=== PATIENT | male | born 1965 | race Caucasian/White ===

== ENCOUNTER 2017-06-15 11:10 | Inpatient (IN) | payer OTHER ==
[2017-06-15 12:21] LABS: PLATELET COUNT 234 10^3/uL (150-400)
--- NOTE | 2017-06-15 12:52 | EDPHY ---
General - History Smoking Status: Former smoker Narrative: CHIEF COMPLAINT: M1 hold, "unpleasant 7 months" HISTORY OF PRESENT ILLNESS: Patient presents by [place] [employer] on an M1 hold. This is for grave disability and suicidal ideation. He reports having "a non pleasant 7 months." Here 1st to feeling depressed, anxious and wanting to . He has attempted to harm self multiple times in past. Most recently by ingesting vodka and over- the-counter sleeping pills earlier this month. Today he was feeling like he was going to hurt himself by a knife to the throat, so he called the police. He arrives on an M1 hold for this. Denies any mental health diagnoses. No other associated complaints or modifying factors. PSYCHIATRIC DIAGNOSES: None PRIOR PSYCHIATRIC EVALUATIONS: Denies M1/DETAINER: [place] [employer]. Just prior to arrival REVIEW OF SYSTEMS: Ten systems reviewed and are negative unless otherwise noted in the HPI EXAMINATION General Appearance: Alert, no distress Head: normocephalic, atraumatic Eyes: Pupils equal and round, no conjunctival pallor or injection ENT, Mouth: Mucous membranes moist. Airway patent Neck: Normal inspection, supple, non-tender Respiratory: Lungs are clear to auscultation. No wheezing, rhonchi or crackles Cardiovascular: Regular rate. Good signs of perfusion. No murmur. Regular rate rhythm Gastrointestinal: Abdomen is soft and nontender Back: non-tender, no bony abnormalities Neurological: GCS 15. A&O, nonfocal, normal gait Skin: Warm and dry, no rash Extremities: Nontender, no pedal edema Psychiatric: Flat affect and depressed mood. Admits suicidal ideation with plan to kill himself by cutting his vital organs or throat DIFFERENTIAL DIAGNOSES: Including but not limited to suicidal ideation, depression, dystonia, schizoaffective, schizophrenia bipolar MDM: 12:50 p.m. M1 hold due to care disability and suicidal thoughts. He is medically cleared at this time for evaluation. He is cooperative in no acute distress 1:30 p.m. Patient resting comfortably awaiting evaluation. 3:30 p.m. At this time patient is awaiting mental evaluation. Resting comfortably and cooperative. 4:00 p.m. At this time I discussed the case with Dr. Mondragon. Patient is pending mental health evaluation at this time. He is resting comfortably in no acute distress. M1 in place SUPERVISION: Patient was independently examined, but I discussed the case with my secondary supervising physician Dr. Naranjo ([facility]) The patient was evaluated and managed by the physician seed analysis laboratory assistant. I have reviewed this chart and I agree with the findings and plan of care as documented , as indicated by my signature. I am the secondary supervising physician. ( Georgina Naranjo) 1700 care assumed by me from JOSE ENRIQUE Olivo pending placement. 20:45 patient has been accepted to [address] [place] [address] Healy I have completed the EMTALA. (Shaw Mondragon) - Objective Vital Signs: Initial Vital Signs Temperature (C) 37 C 06/15/17 11:45 Heart Rate 59 L 06/15/17 11:45 Respiratory Rate 18 06/15/17 11:45 Blood Pressure 122/55 H 06/15/17 11:45 O2 Sat (%) 97 06/15/17 11:45 O2 Delivery Mode Room Air Allergies/Adverse Reactions: No Known Allergies Allergy (Verified 06/15/17 11:43) Home Medications: Medication Instructions Recorded NK [No Known Home Meds] 06/15/17 Laboratory Results: Laboratory Results 06/15/17 12:00 06/15/17 12:00 06/15/17 06/15/17 06/15/17 12:00 12:00 12:00 WBC 8.37 10^3/uL 10^3/uL (3.80-9.50) RBC 4.97 10^6/uL 10^6/uL (4.40-6.38) Hgb 15.9 g/dL g/dL (13.7-17.5) Hct 45.0 % % (40.0-51.0) MCV 90.5 fL fL (81.5-99.8) MCH 32.0 pg pg (27.9-34.1) MCHC 35.3 g/dL g/dL (32.4-36.7) RDW 11.9 % % (11.5-15.2) Plt Count 234 10^3/uL 10^3/uL (150-400) MPV 10.0 fL fL (8.7-11.7) Neut % (Auto) 74.5 % H % (39.3-74.2) Lymph % (Auto) 15.1 % % (15.0-45.0) [place] % (Auto) 8.6 % % (4.5-13.0) Eos % (Auto) 1.0 % % (0.6-7.6) Baso % (Auto) 0.6 % % (0.3-1.7) Nucleat RBC Rel Count 0.0 % % (0.0-0.2) Absolute Neuts (auto) 6.24 10^3/uL 10^3/uL (1.70-6.50) Absolute Lymphs (auto) 1.26 10^3/uL 10^3/uL (1.00-3.00) Absolute Monos (auto) 0.72 10^3/uL 10^3/uL (0.30-0.80) Absolute Eos (auto) 0.08 10^3/uL 10^3/uL (0.03-0.40) Absolute Basos (auto) 0.05 10^3/uL 10^3/uL (0.02-0.10) Absolute Nucleated RBC 0.00 10^3/uL 10^3/uL (0-0.01) Immature Gran % 0.2 % % (0.0-1.1) Immature Gran # 0.02 10^3/uL 10^3/uL (0.00-0.10) Sodium 144 mEq/L mEq/L (135-145) Potassium 3.7 mEq/L mEq/L (3.5-5.2) Chloride 105 mEq/L mEq/L (97-110) Carbon Dioxide 27 mEq/l mEq/l (22-31) Anion Gap 12 mEq/L mEq/L (8-16) BUN 25 mg/dL H mg/dL (7-23) Creatinine 0.7 mg/dL mg/dL (0.7-1.3) Estimated GFR > 60 Glucose 69 mg/dL L mg/dL (70-100) Calcium 9.0 mg/dL mg/dL (8.5-10.4) Urine Opiates Screen NEGATIVE (NEGATIVE) Urine Barbiturates NEGATIVE (NEGATIVE) Ur Phencyclidine Scrn NEGATIVE (NEGATIVE) Ur Amphetamine Screen NEGATIVE (NEGATIVE) U Benzodiazepines Scrn NEGATIVE (NEGATIVE) Urine Cocaine Screen NEGATIVE (NEGATIVE) U Marijuana (THC) Screen NEGATIVE (NEGATIVE) Ethyl Alcohol < 10 mg/dL mg/dL (0-10) Departure - Departure Clinical Impression: Suicidal ideation Condition: Fair Referrals: NONE *PRIMARY CARE P,. [Primary Care Provider] - As per Instructions
[2017-06-15] MEDS ORDERED: ACETAMINOPHEN 325 MG TAB PO PRN (23:21)
[2017-06-15] MEDS ORDERED: MAGNESIUM HYDROXIDE 30 ML UDCUP PO PRN (23:21)
[2017-06-15] MEDS ORDERED: MAG HYDROX/AL HYDROX/SIMETH 30 ML UDCUP PO PRN (23:21)
[2017-06-16] MEDS ORDERED: LITHIUM CARBONATE 300 MG CAP PO SCH ×2 (11:45→21:00)
[2017-06-16] MEDS ORDERED: LITHIUM CARBONATE 300 MG TAB PO SCH (12:00)
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
--- NOTE | 2017-06-16 19:24 | SOAPPROG ---
SOAP Progress Note Assessment/Plan: Assessment: Staff report scored lithium tablet unavailable. Ordered 300mg dose for tonight , will re-evaluate in AM prior to AM dosing. Plan: 06/16/17 19:24 Objective: Vital Signs Temp Pulse Resp BP Pulse Ox 36.3 C 78 12 110/65 96 06/16/17 06:00 06/16/17 16:00 06/16/17 16:00 06/16/17 16:00 06/16/17 16:00 ICD10 Worksheet Patient Problems: Problems Problem Status Onset Anxiety disorder, unspecified Acute Bipolar 2 disorder, major depressive episode Acute Suicidal ideation Acute
[2017-06-16] MEDS ORDERED: LITHIUM CARBONATE ER 300 MG TAB PO SCH (21:00)
--- NOTE | 2017-06-17 10:29 | SOAPPROG ---
SOAP Progress Note Assessment/Plan: Assessment: Bipolar Disorder type 2, depressed with mixed features Avoidant and Schizotypal PD traits Multiple family stressors Patient admitted on M-1 for SI with plan to stab himself, severe insomnia, severe anxiety, and inability to eat or work. Patient appears less emotionally distressed this AM, continued reduced sleep, brief SI without plan, continued hopelessness Plan: M-1 Hold Increase [place] 300mg BID, plan to check level 06/21/2017 Monitor mood stability, depression severity, risk of self-harm SP-1 precautions 06/17/17 10:26 Subjective: CC "Still down" Patient reports tolerating lithium. Reports mild feelings of sedation or visual distortions, unsure if this is a side effect. Denies tremors, nausea, or diarrhea or somnolence. Reports disrupted sleep overnight. Reports lithium may be reducing intensity of emotions. Reports continued brief suicidal thoughts, denies plan/intent, reports thoughts are less intense than previous. Reports feeling hopeless when thinking about brother and mother in [place] who are incapacitated. Reports wanting treatment and to get better. Objective: Vital Signs Temp Pulse Resp BP Pulse Ox 36.6 C 65 12 121/59 H 96 06/17/17 00:05 06/17/17 00:05 06/17/17 00:05 06/17/17 00:05 06/17/17 00:05 Alert thin WM ambulatory without tremor. Speech RRR, loud and rambling at times. Affect anxious, briefly dysphoric. Thoughts organized but perseverating and tangential at times. Reports brief SI without plan and brief feelings of hopelessness. Denies violent thoughts, AH, or paranoia. Fair insight, appropriate judgment. Reviewed patients strength: working, supportive brother, history of resilency, exercising Staff report patient eating fairly well and attending groups, only slept 5 hours , anxious and fearful about medication at times. AST, ALT, TSH WNL - Time Spent With Patient Time Spent With Patient: 30 minutes - Pending Discharge Pending Discharge Within 24 Hours: No Pending Discharge Within 48 Hours: No ICD10 Worksheet Patient Problems: Problems Problem Status Onset Anxiety disorder, unspecified Acute Bipolar 2 disorder, major depressive episode Acute Suicidal ideation Acute
[2017-06-17] MEDS: LITHIUM CARBONATE 300 MG CAP PO SCH ×2 (11:03→22:28)
[2017-06-17] MEDS: LORazepam 0.5 MG TAB PO PRN ×2 (13:22→22:29)
[2017-06-18] MEDS: LITHIUM CARBONATE 300 MG CAP PO SCH ×2 (08:31→21:00)
--- NOTE | 2017-06-18 09:23 | SOAPPROG ---
SOAP Progress Note Assessment/Plan: Assessment: Bipolar Disorder type 2, depressed with mixed features Avoidant and Schizotypal PD traits Multiple family stressors (one brother in [place] in mental institution since October 2016; mother 06/17/17 after prolonged illness) Patient admitted on M-1 for SI with plan to stab himself, severe insomnia, severe anxiety, and inability to eat or work. Patient appears less emotionally distressed since starting Chunky with improved sleep. Bradycardia may be related to patient getting Ativan and Chunky last night, patient asymptomatic. Plan: Patient agrees to voluntary treatment Continue [place] 300mg BID, plan to check level 06/21/2017 with BMP Ativan 0.5mg Q6 PRN severe anxiety Discussed risk of bradycardia, hypotension, syncope with Chunky, Ativan Vitals BID Monitor mood stability, depression severity, risk of self-harm SP-1 precautions 06/18/17 09:19 Subjective: CC: "Slept better" Patient reports taking Chunky and PRN Ativan and sleeping 8 hours. Reports this is a dramatic improvement, has only slept 0-5 hours nightly for years. Reports coping with mothers . Reports anxiety about returning to work but wants continued inpatient treatment and then will take several days of bereavement leave after discharge. Denies dizziness or fainting. Reports tolerating Chunky. Reports reduced intensity of mood swings and feeling less overwhelmed and less hopeless. Reports yesterday PM having brief thoughts of and feeling that life is not worth living, but denies suicidal plan/ intent. Objective: Vital Signs Temp Pulse Resp BP Pulse Ox 36.6 C 49 L 16 101/56 L 95 06/18/17 06:00 06/18/17 06:00 06/18/17 06:00 06/18/17 06:00 06/18/17 06:00 Alert tall thin WM with varela. Speech RRR. Mood "Doing better, slept better" Affect reactive. Thoughts organized but tangential at times. Reports thoughts of wanting to last night, denies suicidal plan/intent. Denies violent thoughts or paranoia or AH. Insight fair. Judgment appropriate. Staff reports patient slept overnight, attending groups, eating well. - Time Spent With Patient Time Spent With Patient: 30 minutes - Pending Discharge Pending Discharge Within 24 Hours: No Pending Discharge Within 48 Hours: No ICD10 Worksheet Patient Problems: Problems Problem Status Onset Anxiety disorder, unspecified Acute Bipolar 2 disorder, major depressive episode Acute Suicidal ideation Acute
[2017-06-18] MEDS: LORazepam 0.5 MG TAB PO PRN ×2 (12:55→21:05)
[2017-06-19] MEDS: LORazepam 0.5 MG TAB PO PRN (08:59)
[2017-06-19] MEDS: LITHIUM CARBONATE 300 MG CAP PO SCH ×2 (08:59→21:56)
--- NOTE | 2017-06-19 13:14 | SOAPPROG ---
SOAP Progress Note Assessment/Plan: Assessment: Per Dr. Welch's note: Assessment: Bipolar Disorder type 2, depressed with mixed features Avoidant and Schizotypal PD traits Multiple family stressors (one brother in [place] in mental institution since October 2016; mother 06/17/17 after prolonged illness) Patient admitted on M-1 for SI with plan to stab himself, severe insomnia, severe anxiety, and inability to eat or work. Patient appears less emotionally distressed since starting [place] with improved sleep. Bradycardia may be related to patient getting Ativan and [place] last night, patient asymptomatic. Plan: Patient agrees to voluntary treatment Continue [place] 300mg BID, plan to check level 06/21/2017 with BMP Ativan 0.5mg Q6 PRN severe anxiety Discussed risk of bradycardia, hypotension, syncope with [place], Ativan Vitals BID Monitor mood stability, depression severity, risk of self-harm SP-1 precautions Plan: 06/19/17 13:07 1. CCM - patient tolerating increased dose of [place], some polyuria, but that seems improved per patient 2. [place] level schedule Mon AM 3. No more incidents of bradycardia or hypotension, VSS 4. Mood improved, no SI Subjective: Met with patient, reviewed chart and d/w staff. Patient says when he first started lithium he saw "wavy lines" but these symptoms have stopped. He c/o frequent urination during night, but reports he would usually "wake up to pee" several times a night for past few years, "I guess it's part of aging." So it's unclear this symptom is actually associated with lithium. Patient admits he has been feeling tearful and sad since his [facility] . However, he says he is "handling it better" today. He says his mood is "pretty positive" but he gets sad when he talks to his MARCUS or BOC who were making arrangements for his [facility] memorial. Patient says he had been feeling depressed about his life more recently, but his [facility] terminal illness was "the final straw." MD discussed aftercare plans, including IOP, but patient says he doesn't have time to attend IOP b/c "I can't take that much time off work." He plans to see therapist through his employer's [employer], and agrees to see a provider through [facility] in [place]. He denies any SI/HI, and has no intent or plan to hurt himself or anyone else. Objective: Vital Signs Temp Pulse Resp BP Pulse Ox 36.7 C 61 16 115/67 93 06/19/17 09:30 06/19/17 06:00 06/19/17 06:00 06/19/17 06:00 06/19/17 06:00 MSE: Affect: Euthymic, grief about his MOC's Mood: "Pretty positive" TP : Linear, goal-directed TC: Denies any SI/HI, no AH/VH Insight/Judgment: Fair - Time Spent With Patient Time Spent With Patient: 25" - Pending Discharge Pending Discharge Within 24 Hours: No Pending Discharge Within 48 Hours: No ICD10 Worksheet Patient Problems: Problems Problem Status Onset Anxiety disorder, unspecified Acute Bipolar 2 disorder, major depressive episode Acute Suicidal ideation Acute
[2017-06-20] MEDS: LITHIUM CARBONATE 300 MG CAP PO SCH ×2 (08:25→18:02)
--- NOTE | 2017-06-20 14:34 | SOAPPROG ---
SOAP Progress Note Assessment/Plan: Assessment: Per Dr. Welch's note: Assessment: Bipolar Disorder type 2, depressed with mixed features Avoidant and Schizotypal PD traits Multiple family stressors (one brother in [place] in mental institution since October 2016; mother 06/17/17 after prolonged illness) Patient admitted on M-1 for SI with plan to stab himself, severe insomnia, severe anxiety, and inability to eat or work. Patient appears less emotionally distressed since starting [place] with improved sleep. Bradycardia may be related to patient getting Ativan and [place] last night, patient asymptomatic. Plan: Patient agrees to voluntary treatment Continue [place] 300mg BID, plan to check level 06/21/2017 with BMP Ativan 0.5mg Q6 PRN severe anxiety Discussed risk of bradycardia, hypotension, syncope with [place], Ativan Vitals BID Monitor mood stability, depression severity, risk of self-harm SP-1 precautions Plan: 06/19/17 13:07 1. CCM - patient tolerating increased dose of [place], some polyuria, but that seems improved per patient 2. [place] level schedule Mon AM 3. No more incidents of bradycardia or hypotension, VSS 4. Mood improved, no SI 06/20/17 14:29 1. CCM - reports improved mood, no SI 2. VSS, diastolic of 57 on 06/18 and HR 58 on 06/20, but otherwise HR low 60's and diastolic > 70 Subjective: Met with patient, reviewed chart and d/w staff. Patient has bright affect, reading magazine on couch this AM. After art therapy group, patient was in cheerful mood. He was writing on the art project he made and taping it to his bedroom door. He said he's feeling "good" today and denies any SI/HI. Patient slept 9.5 hrs and ate 100% of breakfast. Denies feeling depressed or hopeless. Objective: Vital Signs Temp Pulse Resp BP Pulse Ox 36.2 C 58 L 14 119/61 93 06/20/17 06:47 06/20/17 06:47 06/20/17 06:47 06/20/17 06:47 06/20/17 06:47 MSE: Affect: Euthymic, bright, cheerful Mood: "Good" TP: Linear, goal- directed TC: No SI/HI, no AH/VH Insight/Judgment: Fair - Time Spent With Patient Time Spent With Patient: 20" - Pending Discharge Pending Discharge Within 24 Hours: No Pending Discharge Within 48 Hours: No ICD10 Worksheet Patient Problems: Problems Problem Status Onset Anxiety disorder, unspecified Acute Bipolar 2 disorder, major depressive episode Acute Suicidal ideation Acute
[2017-06-21 06:53] VITALS: BP 117/64; PULSE 72; RESP 16; TEMP 97.4; O2SAT 96
[2017-06-21] MEDS: LITHIUM CARBONATE 300 MG CAP PO SCH (08:43)
--- NOTE | 2017-06-21 17:53 | BDS ---
[f rep st] BEHAVIORAL HEALTH DISCHARGE SUMMARY IDENTIFICATION: This is a 52-year-old single white male who lives alone. 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 DATE OF ADMISSION: The patient was in the emergency room on June 15 and then transferred to the inpatient psychiatric unit on an M1 hold after that. ADMITTING DIAGNOSIS: Bipolar disorder, type 2, most recent episode depressed, severe, with mixed features, suicidal ideation, history of head injury in 1999. BRIEF PSYCHIATRIC HISTORY: The patient has no history of psychiatric hospitalizations. He denies any history of suicide attempts or violence toward others. He reports depression and mood swings as an adolescent and having brief suicidal thoughts during that time. Prior to admission, the patient had been cutting his abdomen with a knife while having suicidal thoughts to kill himself. The patient denies a history of drug or alcohol addiction. However, he reports abusing alcohol and cannabis in the past. BRIEF MEDICAL HISTORY: The patient had a head injury with a skull fracture and a scapular fracture in 1999 with prolonged loss of consciousness and a 6-day hospitalization. He denies any chronic medical conditions. He does have a history of an appendectomy. REASON FOR ADMISSION: The patient apparently called paramedics due to severe mood swings. He reported he was having severe depression and severe insomnia. He had gone months with only a few hours of sleep. He had no appetite. He felt anxious and agitated and was having recurrent suicidal thoughts to stab himself in the abdomen with a knife. He had been scratching his abdomen with a knife prior to admission. He also had thoughts to cut his throat. INITIAL EXAMINATION: The patient was a tall, thin, disheveled white male. He appeared very anxious and dysphoric and tearful. He had a labile affect, at times was smiling and laughing, other times was tearful and crying, and reporting alternatively feeling hopeless, helpless, and overwhelmed, and having suicidal thoughts. He denied violent thoughts. He denied auditory hallucinations or paranoia. He was oriented to person, place, and time, with fair insight but impaired judgment. HOSPITAL COURSE: The patient on the inpatient unit was initially on an M1 hold. He agreed to stay in the hospital voluntarily for treatment. The patient endorsed a history of mixed depressive and hypomanic symptoms, primarily depression symptoms for many years with the severe insomnia. The patient was given information about either trying Symbyax, which is a combination of olanzapine and fluoxetine, for bipolar disorder type 2, depressive episode, versus trying lithium. The patient was extremely anxious about taking psychiatric medications as he had never taken psychiatric medications. He did agree start a low dose of lithium, initially 150 in the morning and then 300 at night, and then 300 mg b.i.d. The patient had a marked improvement in his mood. He reported remission of his suicidal thoughts. He reported to continue to have intense emotions and feeling anxious, but overall reported marked improvement in his mood, emotions, and outlook on the future. After 4 days on lithium 300 mg b.i.d. he had a blood level of 0.3. The patient reported some residual mood symptoms and was willing to take a higher dose after discharge. The patient was given information about the risks and benefits of lithium including risk of renal dysfunction, hypothyroidism, risk of toxicity with diarrhea, nausea, tremor, confusion, delirium. He was also given information about the risks of lithium interacting with nonsteroidal anti- inflammatory drugs and diuretics. The patient was agreeable to referral to outpatient programs here at [facility]. He apparently had insurance through the [facility] and the only available psychiatric providers with his insurance were at the [facility] in [place] , but the patient was agreeable to referral to our outpatient program. On the unit, the patient initially was anxious and dysphoric and reported severe insomnia; however, he had improvement in sleep, was able to eat well, attend groups, and was calm and appropriate on the unit. Of note, during the course of the hospitalization the patient reported numerous family stressors including the fact that 1 brother who lives in [place] has been institutionalized in a mental hospital since mid-summer 2016. Also, his mother went into an acute care care home facility in the summer of 2016 due to severe medical problems including end-stage COPD, diabetes, sepsis, and pneumonia. Apparently , the patient's mother went onto a ventilator a week prior to the patient's psychiatric hospitalization. While the patient was on the inpatient unit his mother . The patient's other brother, who lives in the [place] area, was able to go out to [place] to organize the patient's mother's cremation. The patient was notified of his mother's while on the inpatient unit. The patient did take 2 doses of Ativan p.r.n. for anxiety and insomnia after that. The patient was able to cope and process the trauma of losing his mother and was able to describe numerous coping skills to use to manage his emotions and to move forward with his life after discharge. The patient was worried about missing work. The patient was given a letter describing the dates that he was in the hospital as well as the date that he was notified of his mother's . This letter was given directly to the patient and not faxed or transmitted externally. CONDITION ON DISCHARGE: He is an alert, thin, white male, in no acute distress. He is ambulatory, without focal weakness or tremors. His speech is regular rate and rhythm. His thoughts are organized. He is perseverative at times about different topics. He denies any thoughts to hurt himself or others. He denies paranoia or hallucinations. He has good insight, good memory , and appropriate judgment. He described his mood as "much better". His affect is euthymic and appropriate. LABORATORY DATA: The patient had a lithium level of 0.3 after taking lithium 300 mg p.o. b.i.d. for 3-1/2 days. He had a TSH of 2.1, vitamin B12 level 582, ALT 25, AST 17. Sodium 144, potassium 4.6, creatinine 1.0, glucose 96, calcium 9.3. White blood cell count 8.3, hemoglobin 15.9, platelet count 234. His urine drug screen was negative. His alcohol level was negative. DISCHARGE DIAGNOSES: Bipolar disorder, type 2, most recent episode depressed, severe, with mixed features and unspecified anxiety disorder. DISCHARGE MEDICATIONS: [place] extended release 450 mg p.o. b.i.d. DISPOSITION: The patient is leaving the unit with his brother, who will help him get to the pharmacy and then go home. The patient has a followup appointment at the [facility] outpatient program on Friday, June 23, 2017. LEGAL STATUS: The patient was admitted on an M1 hold and then agreed to stay in the hospital on a voluntary basis. /[id number]/MODL MTDD
== END 2017-06-21 13:44 | disposition home or self-care (01) | DRG 880 ==
LOC: BBEH 21:30
PROVIDERS: ADMIT Psychiatry & Neurology Behavioral Neurology & Neuropsychiatry
DX: R45.851 Suicidal ideations (principal); F31.81 Bipolar II disorder; F41.9 Anxiety disorder, unspecified; F51.05 Insomnia due to other mental disorder; Z91.5 Personal history of self-harm; Z87.820 Personal history of traumatic brain injury; Z63.79 Other stressful life events affecting family and household; Z63.4 Disappearance and death of family member; R63.0 Anorexia
CPT/HCPCS: 80305; 82607-90; G0480